=== PATIENT | female | born 1970 | race Caucasian/White ===

== ENCOUNTER 2024-07-02 09:20 | Outpatient (REF) | payer OTHER, SELFPAY | END 2024-07-02 09:21 | disposition home or self-care (01) | LOC: HO.BBR 09:20 | PROVIDERS: PCP Internal Medicine; Visit Provider Internal Medicine | DX: Z13.89 Encounter for screening for other disorder (principal) ==

== ENCOUNTER 2024-07-14 12:57 | Outpatient (REF) | payer OTHER, SELFPAY | END 2024-07-14 12:58 | disposition home or self-care (01) | LOC: HO.BBR 12:57 | PROVIDERS: PCP Internal Medicine; Visit Provider Internal Medicine | DX: Z13.89 Encounter for screening for other disorder (principal) ==